=== PATIENT | male | born 1970 | race African-American/Black ===

== ENCOUNTER 2021-09-20 18:23 | Emergency (ER) | payer BC, SELFPAY ==
[2021-09-20 18:25] VITALS: BP 102/63; PULSE 69; RESP 16; TEMP 35.9; O2SAT 100
--- NOTE | 2021-09-20 18:25 | ECG_ITS ---
Measurements Intervals [place] Rate: 54 P: -8 [place]: 188 QRS: -19 QRSD: 94 T: 3 QT: 404 QTc: 384 Interpretive Statements SINUS BRADYCARDIA DELAYED PRECORDIAL R/S TRANSITION BORDERLINE T WAVE ABNORMALITY- ANTEROLAT/INF LEADS BORDERLINE ECG Electronically Signed On 09-20-2021 20:38:22 CDT by Black Swan D.O.
--- NOTE | 2021-09-20 18:47 | PC.NURSE ---
per pt has not drank much fluid today. family states pt is detoxing from opiates. last took 3-4 days ago. pt states was sitting in garage when he felt lightheaded. states awoke to family over the top of him. states has been having some sweats. denies recent illness.
[2021-09-20] MEDS: SODIUM CHLORIDE 0.9% IV 1,000 ML 999 ML IV CONT (18:51)
[2021-09-20 19:15] LABS: Basophils Percent Auto 0.9 % (0.2-1.2); Eosinophils Absolute Auto 0.1 K/mm3 (0-0.3); Eosinophils Percent Auto 2.2 % (0-4.4); Hemoglobin 12.2 g/dL (14.0-18.0); Immature Granulocyte Absolute 0.01 K/mm3 (0.00-0.031); Immature Granulocyte Percent A 0.3 % (0-0.5); Lymphocytes Absolute Auto 1.43 K/mm3 (0.9-3.2); Lymphocytes Percent Auto 44.1 % (18.3-44.2); Mean Corpuscular HGB Conc 32.1 g/dl (32-36); Mean Corpuscular Hemoglobin 29.1 pg (26-34); Mean Corpuscular Volume 90.7 fl (80-100); Mean Platelet Volume 10.4 fl (7.4-10.4); Monocytes Absolute Auto 0.3 K/mm3 (0.1-0.6); Monocytes Percent Auto 9.3 % (2.6-8.5); Neutrophils Absolute Auto 1.4 K/mm3 (1.3-6.7); Neutrophils Percent Auto 43.2 % (45.5-73.1); Platelet Count Result 190 k/mm3 (150-375); Red Blood Count 4.19 M/mm3 (4.6-6.20); Red Cell Distribution Width 12.1 % (11.5-14.5); White Blood Count 3.2 K/mm3 (4.5-10.0)
[2021-09-20 19:33] LABS: Alanine Aminotransferase 33 U/L (6-50); Albumin Level 3.8 g/dL (3.5-5.1); Alkaline Phosphatase 54 U/L (38-126); Anion Gap 5 mmol/L (8-16); Aspartate Amino Transferase 34 U/L (17-59); Bilirubin,Total 0.2 mg/dL (0.2-1.3); Blood Urea Nitrogen 21 mg/dL (9-20); Calcium 8.5 mg/dL (8.4-10.2); Carbon Dioxide 25 mmol/L (22-30); Chloride 108 mmol/L (98-107); Estimated CRCL calculation 66 ml/min; Estimated Glomerular Filt Rate > 60; Glucose 97 mg/dL (65-110); Potassium 3.8 mmol/L (3.4-5.0); Sodium 138 mmol/L (137-145)
--- NOTE | 2021-09-20 19:52 | ED.DIZZY ---
HPI - Dizziness General Chief Complaint: Syncope Stated Complaint: near syncopy Time Seen by Provider: 09/20/21 18:40 History of Present Illness HPI Narrative: Patient is a 51-year-old male who presents ER with near syncope. Patient reports that him and his had driven from [place] to the area today. Upon getting to where they are staying he got very lightheaded but he was found passed out. He has not had anything to eat or drink today. Denies any chest pain or chest pressure. No swelling in his legs. No calf pain. They are currently driving back to [place]. Has no history of arrhythmia or heart disease. Reports one time in the past he was shocked but that was due to overuse of opiates and his heart rate was down to 20 bpm. He has no implanted defibrillator or pacemaker. Related Data Allergies Allergy/AdvReac Type Severity Reaction Status Date / Time No Known Allergies Allergy Verified 09/20/21 18:27 Review of Systems Review of Systems: All systems reviewed & are unremarkable except as noted in HPI and below Constitutional: Constitutional: Denies chills, Reports fatigue, Denies fever(s) and Reports weakness ENT: Denies nasal congestion and Denies sore throat Cardiovascular: Cardiovascular: Denies chest pain, Denies rapid heart rate and Denies radiating jaw, neck or arm pain Respiratory: Respiratory: Denies cough and Denies dyspnea Gastrointestinal: Gastrointestinal: Denies abdominal pain, Denies nausea and Denies vomiting Neurologic: Reports syncope (Near), Denies headache(s), Denies focal weakness and Denies numbness PMFSH Past Medical History Medical History (Updated 09/20/21 @ 20:51 by Víctor Odom MD) Healthy adult male Surgical History Surgical History (Updated 09/20/21 @ 19:53 by Víctor Odom MD) No pertinent past surgical history Social History Social History (Updated 09/20/21 @ 19:56 by Víctor Odom MD) Smoking status: Never smoker Exam Narrative: GENERAL: Well-appearing, well-nourished, and in no acute distress. HEAD: Normocephalic, atraumatic. NECK: Supple. CHEST: Clear to auscultation. No respiratory distress. HEART: Bradycardic and regular.. Normal peripheral pulses. ABDOMEN: Soft, nontender, nondistended. EXTREMITIES: Normal range of motion. No edema. SKIN: Warm, dry, no rash. NEURO: Alert and oriented x3. PSYCH: Normal mood and affect. Course Course Emergency Course: Patient up and ambulatory. Feeling much better after IV fluid. Blood pressure 118/77 mmHg. Discharge home. No chest pain or palpitations. No calf pain or swelling. Not concern for PE. Vital Signs Vital signs: Vital Signs Temperature 96.7 F L 09/20/21 18:25 Pulse Rate 69 09/20/21 18:25 Respiratory Rate 16 09/20/21 18:25 Blood Pressure 102/63 09/20/21 18:25 Pulse Oximetry 100 09/20/21 18:25 Temperature 96.7 F L 09/20/21 18:25 Pulse Rate 69 09/20/21 18:25 Respiratory Rate 16 09/20/21 18:25 Blood Pressure 102/63 09/20/21 18:25 Pulse Oximetry 100 09/20/21 18:25 MDM - Dizziness Lab Data Result diagrams: 09/20/21 19:03 09/20/21 19:03 Labs: Lab Results 09/20/21 09/20/21 Range/Units 19:03 19:03 WBC 3.2 L (4.5-10.0) K/mm3 RBC 4.19 L (4.6-6.20) M/mm3 Hgb 12.2 L (14.0-18.0) g/dL Hct 38.0 L (42.0-52.0) % MCV 90.7 (80-100) fl MCH 29.1 (26-34) pg MCHC 32.1 (32-36) g/dl RDW 12.1 (11.5-14.5) % Plt Count 190 (150-375) k/mm3 MPV 10.4 (7.4-10.4) fl Immature Gran % (Auto) 0.3 (0-0.5) % Neut % (Auto) 43.2 L (45.5-73.1) % Lymph % (Auto) 44.1 (18.3-44.2) % [place] % (Auto) 9.3 H (2.6-8.5) % Eos % (Auto) 2.2 (0-4.4) % Baso % (Auto) 0.9 (0.2-1.2) % Lymph # (Auto) 1.43 (0.9-3.2) K/mm3 [place] # (Auto) 0.3 (0.1-0.6) K/mm3 Eos # (Auto) 0.1 (0-0.3) K/mm3 Baso # (Auto) 0.0 (0.0-0.1) K/mm3 Abs Immat Gran (auto) 0.01 (0.00-0.031) K/mm3 Absolute Neuts
== END 2021-09-20 21:15 | disposition home or self-care (01) ==
PROVIDERS: Emergency Provider Emergency Medicine
DX: R55 Syncope and collapse (principal); E86.0 Dehydration; R00.1 Bradycardia, unspecified; R94.31 Abnormal electrocardiogram [ECG] [EKG]
CPT/HCPCS: 36415; 80053; 85025; 93005; 96360; 99284; J7030